=== PATIENT | female | born 1995 | race African-American/Black ===

== ENCOUNTER 2019-05-01 15:31 | Emergency (ER) | payer OTHER ==
[~2019-05-01] VITALS: Ht 165.1 cm; Wt 86.2 kg
[~2019-05-01 15:31] MED LIST: PRETAB PO
--- NOTE | 2019-05-01 15:31 | NUR ---
PATIENT BIBA TO BED 1 AT THIS TIME
[2019-05-01 15:39] VITALS: BP 133/87
--- NOTE | 2019-05-01 15:39 | NUR ---
PER EMS PT STARTED HAVING TREMORS, SNAPPING FINGERS UNCRONTROLABLY X30 MIN, PT FROM HOME, ALONG W/ T[place] FROM 35-45, CURRENT RESP RATE 21. PT AAOX3, COOPERATIVE, CONSTANT TREMORS, DOES NOT REMEMBER COMING TO HOSPITAL OR WHAT WAS HAPPENING BEFORE COMING TO HOSPITAL. PT DENIES ANY MEDICATIONS OR DRUG USE. PT REPORTS RECENT LOSS OF DAUGHTER 2 MONTHS AGO, DENIES STRESS AT HOME. MEDHX:DENIES RX:DENIES Addendum: 05/01/19 at 1547 by LILIAM PT C/O CP AT 02/25, PER THOMAS TODD NO EKG AT THIS TIME.
[2019-05-01] MEDS ORDERED: NACL 0.9% 1,000 ML IV ONE (16:25)
--- NOTE | 2019-05-01 17:07 | NUR ---
PT AMBULATED TO BATHROOM TO PROVIDE URINE SAMPLE.
--- NOTE | 2019-05-01 17:48 | NUR ---
PT AMB TO RESTROOM FOR URINE SAMPLE. NO URINE SAMPLE FIRST ATTEMPT.
--- NOTE | 2019-05-01 17:59 | NUR ---
URINE COLLECTED AND WALKED DIRECTLY TO LAB
[2019-05-01 18:08] LABS: APPEARANCE,URINE CLEAR (CLEAR); BLOOD, URINE NEGATIVE (NEGATIVE); COLOR,URINE STRAW (YELLOW); UGLUCOSE NEGATIVE (NEGATIVE)
[2019-05-01 18:09] LABS: BILIRUBIN,URINE NEGATIVE (NEGATIVE); LEUKOCYTE ESTERASE ,URINE NEGATIVE (NEGATIVE); NITRITE, URINE NEGATIVE (NEGATIVE)
[2019-05-01 18:10] LABS: BARBITURATE, URINE NEG. ng/ml (NEG <=200); BENZODIAZEPINE, URINE NEG. ng/mL (NEG <=200); CANNABINOID, URINE NEG. ng/mL (NEG <=50); COCAINE, URINE NEG. ng/mL (NEG <=300); OPIATE, URINE NEG. ng/mL (NEG <=2000); PHENCYCLIDINE SCREEN,URINE NEG. ng/mL (NEG <=25)
[2019-05-01 19:10] VITALS: BP 124/74
== END 2019-05-01 19:10 | disposition home or self-care (01) ==
LOC: MED 15:31
DX: F41.9 Anxiety disorder, unspecified (principal); E86.0 Dehydration; Z79.899 Other long term (current) drug therapy; Z98.890 Other specified postprocedural states
CPT/HCPCS: 80305; 81003; 82948; 96360; 99283; J7030

== ENCOUNTER 2020-07-02 20:08 | Emergency (ER) | payer OTHER ==
[2020-07-02] MEDS ORDERED: LORazepam 1 MG TAB ONE (21:11)
== END 2020-07-02 22:40 | disposition home or self-care (01) ==
LOC: MED 20:08
DX: F41.0 Panic disorder [episodic paroxysmal anxiety] (principal); F10.129 Alcohol abuse with intoxication, unspecified
CPT/HCPCS: 71045; 99283; Q0092

== ENCOUNTER 2020-08-01 12:58 | Emergency (ER) | payer OTHER ==
[~2020-08-01] VITALS: Ht 160 cm; Wt 89.8 kg
[2020-08-01 13:04] VITALS: BP 144/91
[2020-08-01] MEDS: LORazepam 1 MG TAB PO ONE (13:40)
[2020-08-01 13:51] LABS: BASOPHILS # (AUTO) 0.1 K/uL (0.00-0.22); BASOPHILS % (AUTO) 0.9 % (0.0-2.0); EOSINOPHILS # (AUTO) 0.2 K/uL (0-0.4); EOSINOPHILS % (AUTO) 3.3 % (0.0-4.0); HEMATOCRIT 36.6 % (36-48); HEMOGLOBIN 11.9 g/dL (12.0-16.0); LYMPHOCYTES # (AUTO) 1.6 K/uL (2.5-16.5); LYMPHOCYTES % (AUTO) 25.2 % (20.5-51.1); MEAN CORPUSCULAR HEMOGLOBIN 28 pg (27-31); MEAN CORPUSCULAR HGB CONC 33 g/dL (33-37); MEAN CORPUSCULAR VOLUME 87.2 fL (80-94); MONOCYTES # (AUTO) 0.9 K/uL (0.8-1.0); MONOCYTES % (AUTO) 13.6 % (1.7-9.3); NEUTROPHILS # (AUTO) 3.7 K/uL (1.8-7.7); PLATELET COUNT (AUTO) 213 K/uL (140-450); RED BLOOD CELL COUNT(AUTO) 4.19 MIL/uL (4.20-5.40); RED CELL DISTRIBUTION WIDTH 19.2 % (11.6-13.7); WHITE BLOOD COUNT (AUTO) 6.5 K/uL (4.8-10.8)
[2020-08-01 14:15] LABS: ALBUMIN 3.8 g/dL (3.4-5.0); ANION GAP 15.5 (8-16); CARBON DIOXIDE 23.5 mmol/L (21-32); CREATININE 0.8 mg/dL (0.6-1.3); THYROID STIMULATING HORMONE 0.92 uIU/mL (0.34-3.74); TOTAL BILIRUBIN 0.4 mg/dL (0.0-1.0)
[2020-08-01 14:25] VITALS: BP 123/77
== END 2020-08-01 14:39 | disposition home or self-care (01) ==
LOC: MED 12:58
DX: R07.9 Chest pain, unspecified (principal); F10.239 Alcohol dependence with withdrawal, unspecified; R03.0 Elevated blood-pressure reading, without diagnosis of hypertension; F17.210 Nicotine dependence, cigarettes, uncomplicated; Z79.899 Other long term (current) drug therapy; Z98.890 Other specified postprocedural states
CPT/HCPCS: 36415; 80053; 81025; 84443; 84484; 85025; 93005; 99284

== ENCOUNTER 2020-08-19 13:08 | Emergency (ER) | payer OTHER ==
[~2020-08-19] VITALS: Ht 160 cm; Wt 89.4 kg
[2020-08-19 13:17] VITALS: BP 146/98
--- NOTE | 2020-08-19 13:19 | NUR ---
24 YEAR OLD FEMALE BIBA FROM [facility] [facility] AFTER HAVING ANXIETY THAT HAS BEEN GRADUALLY GETTING WORSE SINCE 9AM. PT STATES THAT SYMPTOMS SAME FROM PREVIOUS PANIC ATTACK. PT SHAKING, HEADACHE, AND WITH DIZZINESS. PT AOX4, BREATHING EVEN AND UNLABORED, SKIN WARM AND DRY. BED IN LOWEST POSITION, LOCKED, BED RAIL UPX1. PMH - PANIC ATTACKS ALLERGIES - NKA
[2020-08-19] MEDS ORDERED: diazePAM 5 MG TAB PO ONE (13:40)
[2020-08-19 15:41] VITALS: BP 135/89
--- NOTE | 2020-08-19 15:41 | NUR ---
Patient discharged with v/s stable. Written and verbal after care instructions given and explained. Patient verbalized understanding. Ambulatory with steady gait. All questions addressed prior to discharge. Advised to follow up with PMD.
== END 2020-08-19 15:41 | disposition home or self-care (01) ==
LOC: MED 13:08
DX: F41.9 Anxiety disorder, unspecified (principal); Z88.8 Allergy status to other drugs, medicaments and biological substances; Z79.899 Other long term (current) drug therapy
CPT/HCPCS: 70450; 81025; 99284

== ENCOUNTER 2021-05-24 06:50 | Emergency (ER) | payer OTHER ==
[~2021-05-24] VITALS: Ht 167.6 cm; Wt 111.1 kg
[2021-05-24 07:00] VITALS: BP 88/64
--- NOTE | 2021-05-24 07:00 | NUR ---
PT BIBA FROM HOME AND PLACE OUTSIDE IN COVID TENT FOR ISOLATION.
--- NOTE | 2021-05-24 07:05 | NUR ---
KATIANA OF [facility] COLLECTED AND TAKEN TO LAB.
--- NOTE | 2021-05-24 07:16 | NUR ---
DAY SULLIVAN OUTSIDE EVALUATING PATIENT.
[2021-05-24] MEDS ORDERED: HYDR25CA1 PO (08:04)
[2021-05-24 08:10] VITALS: BP 102/70
--- NOTE | 2021-05-24 08:10 | NUR ---
Patient discharged with v/s stable. Written and verbal after care instructions given and explained. Patient alert, oriented and verbalized understanding of instructions. Ambulatory with steady gait. All questions addressed prior to discharge. ID band removed. Patient advised to follow up with PMD. Rx of Vistaril given. Patient educated on indication of medication including possible reaction and side effects. Opportunity to ask questions provided and answered.
== END 2021-05-24 08:10 | disposition home or self-care (01) ==
LOC: MED 06:50
DX: F41.9 Anxiety disorder, unspecified (principal); Z20.822 Contact with and (suspected) exposure to COVID-19; R50.9 Fever, unspecified; R10.9 Unspecified abdominal pain; Z98.890 Other specified postprocedural states; Z79.899 Other long term (current) drug therapy; Z88.6 Allergy status to analgesic agent
CPT/HCPCS: 99283

== ENCOUNTER 2021-05-30 14:58 | Emergency (ER) | payer OTHER ==
[~2021-05-30] VITALS: Ht 160 cm; Wt 77.1 kg
[~2021-05-30 14:58] MED LIST changes: +HYDR25CA1 PO
[2021-05-30 15:13] VITALS: BP 160/107
--- NOTE | 2021-05-30 15:33 | NUR ---
PT TO ER BED 11.
--- NOTE | 2021-05-30 15:48 | NUR ---
25 Y/O FEMALE C/O LLQ ABD PAIN 06/28 DESCRIBES SHARP RADIATING TO LEFT FLANK X 6 DAYS. PT STATES SHE IS HAVING HESITANCY. DENIES SOB, DENIES FEVER/CHILLS. PMH: ANXIETY, HTN ALLERGIES: IBUPROFEN
[2021-05-30] MEDS ORDERED: ONDANSETRON 4 MG/2 ML VIAL IVP ONE (16:00)
[2021-05-30] MEDS ORDERED: MORPHINE SULFATE 4 MG/ML SYR IVP ONE (16:00)
--- NOTE | 2021-05-30 16:12 | NUR ---
OUTSEWER AT PT BEDSIDE.
--- NOTE | 2021-05-30 16:14 | NUR ---
PT AMBULATED TO RESTROOM FOR UA COLLECTION.
[2021-05-30 16:21] LABS: APPEARANCE,URINE CLEAR (CLEAR); BILIRUBIN,URINE NEGATIVE (NEGATIVE); BLOOD, URINE NEGATIVE (NEGATIVE); COLOR,URINE YELLOW (YELLOW); LEUKOCYTE ESTERASE ,URINE NEGATIVE (NEGATIVE); NITRITE, URINE NEGATIVE (NEGATIVE); UGLUCOSE NEGATIVE (NEGATIVE)
[2021-05-30 16:22] LABS: BASOPHILS # (AUTO) 0.1 K/uL (0.00-0.22); BASOPHILS % (AUTO) 0.9 % (0.0-2.0); EOSINOPHILS # (AUTO) 0.1 K/uL (0-0.4); EOSINOPHILS % (AUTO) 1.3 % (0.0-4.0); HEMATOCRIT 37.2 % (36-48); LYMPHOCYTES # (AUTO) 1.5 K/uL (2.5-16.5); LYMPHOCYTES % (AUTO) 20.5 % (20.5-51.1); MEAN CORPUSCULAR HEMOGLOBIN 29 pg (27-31); MEAN CORPUSCULAR HGB CONC 32 g/dL (33-37); MEAN CORPUSCULAR VOLUME 88.6 fL (80-94); MONOCYTES # (AUTO) 0.5 K/uL (0.8-1.0); MONOCYTES % (AUTO) 7.7 % (1.7-9.3); NEUTROPHILS # (AUTO) 4.9 K/uL (1.8-7.7); NEUTROPHILS % (AUTO) 69.6 % (42.2-75.2); PLATELET COUNT (AUTO) 224 K/uL (140-450); RED CELL DISTRIBUTION WIDTH 18.4 % (11.6-13.7); WHITE BLOOD COUNT (AUTO) 7.1 K/uL (4.8-10.8)
[2021-05-30 16:52] LABS: ANION GAP 12.6 (8-16); CARBON DIOXIDE 26.6 mmol/L (21-32); CREATININE 0.7 mg/dL (0.6-1.3); POTASSIUM 4.2 mmol/L (3.5-5.1); TOTAL BILIRUBIN 0.5 mg/dL (0.0-1.0)
--- NOTE | 2021-05-30 16:56 | NUR ---
PT RESTING, VISIBLE EQUAL RISE AND FALL OF CHEST, VSS, WILL CONTINUE TO MONITOR.
--- NOTE | 2021-05-30 16:57 | NUR ---
PT TAKEN TO CT VIA W/C.
--- NOTE | 2021-05-30 17:14 | NUR ---
PT TAKEN TO ER BED 11 VIA W/C.
[2021-05-30] MEDS ORDERED: BEN10 PO (17:35)
--- NOTE | 2021-05-30 17:44 | NUR ---
DR. SULLIVAN AT PT BEDSIDE FOR FURTHER EVALUATION.
[2021-05-30 17:53] VITALS: BP 144/87
--- NOTE | 2021-05-30 17:53 | NUR ---
Patient discharged with v/s stable. Written and verbal after care instructions given ABD PAIN and explained. Patient alert, oriented and verbalized understanding of instructions. Ambulatory with steady gait. All questions addressed prior to discharge. ID band removed. Patient advised to follow up with PMD. Rx of BENTYL 10MG PO Q6H PRN PAIN given. Patient educated on indication of medication including possible reaction and side effects. Opportunity to ask questions provided and answered.
== END 2021-05-30 17:53 | disposition home or self-care (01) ==
LOC: MED 14:58
DX: R10.32 Left lower quadrant pain (principal); M54.9 Dorsalgia, unspecified; F41.9 Anxiety disorder, unspecified; F17.210 Nicotine dependence, cigarettes, uncomplicated; Z88.6 Allergy status to analgesic agent; Z79.899 Other long term (current) drug therapy; Z98.890 Other specified postprocedural states
CPT/HCPCS: 36415; 74176; 80053; 81003; 81025; 83690; 85025; 96374; 96375; 99284; J2270; J2405

== ENCOUNTER 2021-09-23 11:58 | Emergency (ER) | payer OTHER ==
[~2021-09-23] VITALS: Ht 160 cm; Wt 90.7 kg
[~2021-09-23 11:58] MED LIST changes: +BEN10 PO
[2021-09-23 12:24] VITALS: BP 159/83
[2021-09-23] MEDS ORDERED: HYDROcodone/APAP 5/325 MG 1 TAB TAB PO ONE (13:20)
--- NOTE | 2021-09-23 14:07 | NUR ---
26 y/o female bib sister from home, patient states she has been having right sided rib pain and left leg pain since 09/17/21. denies injury, exertion or fall. Denies nausea, vomiting, diarrhea. Skin is pink/warm/dry. a&o x4 ambulates with assist. Lungs clear bl, heart rate even and regular. Pt denies any fever, cp, sob, or cough at this time. Patient states pain is 10/10 at this time. Vss. patient positioned for comfort. Hob elevated. Bed down. Ermd made aware of pt. pmh: htn allergy: ibuprofen med: denies
[2021-09-23] MEDS ORDERED: NAPR-54 PO (14:48)
[2021-09-23] MEDS ORDERED: ACET-10509 PO (14:49)
[2021-09-23 14:58] VITALS: BP 159/83
--- NOTE | 2021-09-23 14:59 | NUR ---
Note undone in EDM - 09/23/21 at 1500 by MEDPMR Patient discharged with v/s stable. Written and verbal after care instructions given and explained. Patient alert, oriented and verbalized understanding of instructions. Ambulatory with sister to car. All questions addressed prior to discharge. ID band removed. Patient advised to follow up with PMD. Rx of naproxen given. Patient educated on indication of medication including possible reaction and side effects. Opportunity to ask questions provided and answered.
--- NOTE | 2021-09-23 15:00 | NUR ---
Patient discharged with v/s stable. Written and verbal after care instructions given and explained. Patient alert, oriented and verbalized understanding of instructions. Ambulatory with sister to car. All questions addressed prior to discharge. ID band removed. Patient advised to follow up with PMD. Rx of tylenol given. Patient educated on indication of medication including possible reaction and side effects. Opportunity to ask questions provided and answered.
== END 2021-09-23 14:58 | disposition home or self-care (01) ==
LOC: MED 11:58
DX: R07.81 Pleurodynia (principal); M79.604 Pain in right leg; M79.605 Pain in left leg; I10 Essential (primary) hypertension; Z79.899 Other long term (current) drug therapy; Z88.6 Allergy status to analgesic agent
CPT/HCPCS: 71111; 81002; 81025; 99283

== ENCOUNTER 2022-03-20 14:03 | Emergency (ER) | payer OTHER ==
[~2022-03-20] VITALS: Ht 160 cm; Wt 90.7 kg
[~2022-03-20 14:03] MED LIST changes: +ACET-10509 PO
[2022-03-20 14:21] VITALS: BP 134/66
[2022-03-20] MEDS ORDERED: ACETAMINOPHEN 325 MG TAB PO ONE (15:30)
[2022-03-20] MEDS ORDERED: ACET500P13 PO (15:57)
[2022-03-20 17:06] VITALS: BP 152/67
--- NOTE | 2022-03-20 17:06 | NUR ---
Patient discharged with v/s stable. Written and verbal after care instructions ABOUT WRIST PAIN given and explained. Patient alert, oriented and verbalized understanding of instructions. Ambulatory with steady gait. All questions addressed prior to discharge. ID band removed. Patient advised to follow up with PMD. Rx of TYLENOL EXTRA STRENGTH given. Patient educated on indication of medication including possible reaction and side effects. Opportunity to ask questions provided and answered.
== END 2022-03-20 17:06 | disposition home or self-care (01) ==
LOC: MED 14:03
DX: S63.501A Unspecified sprain of right wrist, initial encounter (principal); S63.91XA Sprain of unspecified part of right wrist and hand, initial encounter; I10 Essential (primary) hypertension; Z79.899 Other long term (current) drug therapy; Z88.6 Allergy status to analgesic agent; W22.01XA Walked into wall, initial encounter; Y93.89 Activity, other specified; Y92.89 Other specified places as the place of occurrence of the external cause; Y99.8 Other external cause status
CPT/HCPCS: 73110; 73130; 99284

== ENCOUNTER 2023-01-02 15:52 | Emergency (ER) | payer OTHER ==
[~2023-01-02] VITALS: Ht 160 cm; Wt 83.9 kg
[~2023-01-02 15:52] MED LIST changes: +ACET500P13 PO
[2023-01-02 16:00] VITALS: BP 142/93
--- NOTE | 2023-01-02 16:46 | NUR ---
27 Y/O FEMALE C/O PANIC ATTACKS, ANXIETY AND CHEST PAIN WHEN PANIC ATTACK IS ON [id number]. PT STATES THAT SHE FEELS THOUGH "HER LEFT HAND IS GOING NUMB". DENIES ANY SOB, ABD PAIN. PER PT LAST PANIC ATTACK WAS TODAY AT 1500. DENIES CHEST PAIN AT THIS TIME ALLERGY: IBUPROFEN PMH: ANXIETY, HTN
--- NOTE | 2023-01-02 17:12 | NUR ---
PT RETURN FROM XRAY
[2023-01-02 17:27] LABS: BASOPHILS # (AUTO) 0.1 K/uL (0.00-0.22); BASOPHILS % (AUTO) 2.8 % (0.0-2.0); EOSINOPHILS # (AUTO) 0.1 K/uL (0-0.4); HEMATOCRIT 39.4 % (36-48); HEMOGLOBIN 12.8 g/dL (12.0-16.0); LYMPHOCYTES # (AUTO) 1.9 K/uL (2.5-16.5); LYMPHOCYTES % (AUTO) 38.6 % (20.5-51.1); MEAN CORPUSCULAR HEMOGLOBIN 30 pg (27-31); MEAN CORPUSCULAR HGB CONC 32 g/dL (33-37); MEAN CORPUSCULAR VOLUME 93.2 fL (80-94); MONOCYTES # (AUTO) 0.5 K/uL (0.8-1.0); MONOCYTES % (AUTO) 10.6 % (1.7-9.3); NEUTROPHILS # (AUTO) 2.3 K/uL (1.8-7.7); PLATELET COUNT (AUTO) 271 K/uL (140-450); RED BLOOD CELL COUNT(AUTO) 4.23 MIL/uL (4.20-5.40)
[2023-01-02 17:39] VITALS: BP 152/77
[2023-01-02 17:46] LABS: ANION GAP 13.2 (8-16); CARBON DIOXIDE 29.6 mmol/L (21-32); CREATININE 0.8 mg/dL (0.6-1.3); POTASSIUM 3.8 mmol/L (3.5-5.1)
[2023-01-02] MEDS ORDERED: HYDR25CA1 PO (18:04)
== END 2023-01-02 18:34 | disposition home or self-care (01) ==
LOC: MED 15:52
DX: R07.9 Chest pain, unspecified (principal); F41.9 Anxiety disorder, unspecified; I10 Essential (primary) hypertension; F17.200 Nicotine dependence, unspecified, uncomplicated; Z88.5 Allergy status to narcotic agent; Z72.89 Other problems related to lifestyle; Z79.899 Other long term (current) drug therapy
CPT/HCPCS: 36415; 71045; 80048; 81025; 84484; 85025; 85379; 93005; 99285

== ENCOUNTER 2023-01-24 17:32 | Emergency (ER) | payer OTHER ==
[~2023-01-24] VITALS: Ht 160 cm; Wt 83.5 kg
[2023-01-24 17:39] VITALS: BP 133/70
--- NOTE | 2023-01-24 17:42 | NUR ---
PT AMBULATED TO ER BED 4
--- NOTE | 2023-01-24 18:17 | NUR ---
here for left breast swelling and pain, no nipple discharge, no fever or chills
--- NOTE | 2023-01-24 18:46 | NUR ---
Female Billet Cutter accompanied female patient for BREAST Exam.
[2023-01-24] MEDS ORDERED: LIDOCAINE MPF 1% 10 MG/ML VIAL INJ ONE (19:00)
[2023-01-24] MEDS ORDERED: ACETAMINOPHEN 325 MG TAB PO ONE (19:00)
[2023-01-24] MEDS ORDERED: CEPH-588 PO (20:03)
[2023-01-24] MEDS ORDERED: SULF-59 PO (20:03)
[2023-01-24] MEDS ORDERED: ACET-8905 PO (20:03)
[2023-01-24 20:12] VITALS: BP 133/70
--- NOTE | 2023-01-24 20:12 | NUR ---
Patient discharged with v/s stable. Written and verbal after care instructions given and explained. Patient alert, oriented and verbalized understanding of instructions. Ambulatory with steady gait. All questions addressed prior to discharge. ID band removed. Patient advised to follow up with PMD. Rx of KEFLEX BACTRIM HYDROCODON-ACETAMINOPHEN given. Patient educated on indication of medication including possible reaction and side effects. Opportunity to ask questions provided and answered.
== END 2023-01-24 20:12 | disposition home or self-care (01) ==
LOC: MED 17:32
DX: N63.20 Unspecified lump in the left breast, unspecified quadrant (principal); I10 Essential (primary) hypertension; F17.210 Nicotine dependence, cigarettes, uncomplicated; Z72.89 Other problems related to lifestyle; Z88.5 Allergy status to narcotic agent; Z79.899 Other long term (current) drug therapy
CPT/HCPCS: 10060; 99284; J2001

== ENCOUNTER 2023-01-28 11:19 | Emergency (ER) | payer OTHER ==
[~2023-01-28] VITALS: Ht 160 cm; Wt 84.8 kg
[~2023-01-28 11:19] MED LIST changes: +ACET-8905 PO; +CEPH-588 PO; +SULF-59 PO
[2023-01-28 11:25] VITALS: BP 144/95
--- NOTE | 2023-01-28 12:00 | NUR ---
27/F WALKED IN C/O LEFT SIDED BREAST PAIN WORSE IN AM. PT STATES NOTICING LUMP ON BREAST X 1 WK. PMH- Denies NKA
[2023-01-28 13:55] VITALS: BP 133/85
== END 2023-01-28 13:55 | disposition home or self-care (01) ==
LOC: MED 11:19
DX: N64.4 Mastodynia (principal); I10 Essential (primary) hypertension; F31.9 Bipolar disorder, unspecified; Z79.899 Other long term (current) drug therapy; Z79.2 Long term (current) use of antibiotics; Z79.891 Long term (current) use of opiate analgesic; Z88.6 Allergy status to analgesic agent
CPT/HCPCS: 76641; 99284

== ENCOUNTER 2023-05-04 11:38 | Emergency (ER) | payer OTHER ==
[~2023-05-04] VITALS: Ht 162.6 cm; Wt 81.6 kg
--- NOTE | 2023-05-04 11:42 | NUR ---
[facility] TO ER BED 07
[2023-05-04 11:54] VITALS: BP 132/76; PULSE 92; RESP 18; TEMP 97; O2SAT 98
--- NOTE | 2023-05-04 11:58 | NUR ---
27yo F SHAHRZAD ON 5150 HOLD FOR DTS. PT STATES SHE TOOK 7 PILLS OF TRAZODONE 50MG AT 0800AM. PT STATES "I JUST WANT TO FALL ASLEEP AND NEVER WAKE UP. I FEEL SO DEPRESSED." SISTER CALLED MEDICS TO BE TREATED IN ED. PT C/O ABD PAIN AND NAUSEA X 2HRS. PT STATES SHE HAS PREVIOUSLY ATTEMP TO KILL HERSELF, UNSUCCESSFUL. CURRENTLY IS STRESSED BECAUSE SHE HAS TO MOVE OUT OF HER APARTMENT SOON AND HAS NO PLACE TO GO. SHE IS IN THE PROCESS OF SSI, HER FAMILY WILL ALLOW HER TO STAY WITH THEM IF NEEDED BUT SHE RATHER LIVE ON HER OWN. PT DENIES VOMITING, MEJIA, FEVER, CHILLS, URINARY SYMPTOMS. DENIES VISUAL AND AUDIABLE HALLUCINATIONS. PT SKIN INTACT/DRY. NAD NOTED, SAFETY MAINTAINED. HOLD PLACED BY LALO NAGEL ON 05/04/23 AT 1120 OFFICER John PAGE BAD NUMBER [id number] ON 05/04/23 AT 1120 BY OFFICER John PAGE
--- NOTE | 2023-05-04 12:09 | NUR ---
PT PLACED ON SUICIDE PRECAUTIONS. CURRENTLY ON LUMBER STACKER. PER POISON CONTROL PT SHOULD BE MONITORED FOR 6 HOURS BEFORE PT CAN BE MEDICALLY CLEARED TO BE PLACED IN A PSYCH FACILITY.
[2023-05-04 12:23] LABS: BASOPHILS # (AUTO) 0.1 K/uL (0.00-0.22); EOSINOPHILS # (AUTO) 0.2 K/uL (0-0.4); HEMATOCRIT 37.6 % (36-48); HEMOGLOBIN 12.1 g/dL (12.0-16.0); LYMPHOCYTES # (AUTO) 1.8 K/uL (2.5-16.5); LYMPHOCYTES % (AUTO) 23.4 % (20.5-51.1); MEAN CORPUSCULAR HEMOGLOBIN 31 pg (27-31); MEAN CORPUSCULAR HGB CONC 32 g/dL (33-37); MEAN CORPUSCULAR VOLUME 96.2 fL (80-94); MONOCYTES # (AUTO) 1.2 K/uL (0.8-1.0); MONOCYTES % (AUTO) 14.9 % (1.7-9.3); NEUTROPHILS # (AUTO) 4.6 K/uL (1.8-7.7); NEUTROPHILS % (AUTO) 58.7 % (42.2-75.2); PLATELET COUNT (AUTO) 253 K/uL (140-450); RED CELL DISTRIBUTION WIDTH 17.1 % (11.6-13.7); WHITE BLOOD COUNT (AUTO) 7.9 K/uL (4.8-10.8)
[2023-05-04 12:27] LABS: APPEARANCE,URINE CLEAR (CLEAR); BILIRUBIN,URINE NEGATIVE (NEGATIVE); BLOOD, URINE NEGATIVE (NEGATIVE); COLOR,URINE YELLOW (YELLOW); LEUKOCYTE ESTERASE ,URINE NEGATIVE (NEGATIVE); NITRITE, URINE NEGATIVE (NEGATIVE); UGLUCOSE NEGATIVE (NEGATIVE)
[2023-05-04 12:45] LABS: BARBITURATE, URINE NEG ng/ml (NEG <=200); BENZODIAZEPINE, URINE NEG ng/mL (NEG <=200); CANNABINOID, URINE NEG ng/mL (NEG <=50); COCAINE, URINE NEG ng/mL (NEG <=300); OPIATE, URINE NEG ng/mL (NEG <=2000); PHENCYCLIDINE SCREEN,URINE NEG ng/mL (NEG <=25)
[2023-05-04 12:49] LABS: ALBUMIN 3.2 g/dL (3.4-5.0); ANION GAP 12.9 (8-16); ASPARTATE AMINOTRANSFERASE 46 U/L (15-37); CARBON DIOXIDE 26.9 mmol/L (21-32); CHLORIDE 107 mmol/L (98-107); CREATININE 0.6 mg/dL (0.6-1.3); GFR ARICAN-AMERICAN 152 mL/min (>90); GLUCOSE 93 mg/dL (74-106); POTASSIUM 3.8 mmol/L (3.5-5.1); SODIUM SERUM 143 mmol/L (136-145); TOTAL BILIRUBIN 0.3 mg/dL (0.0-1.0); UREA NITROGEN, BLOOD 8 mg/dL (7-18)
[2023-05-04 12:50] LABS: ACETAMINOPHEN < 0.5 ug/ml (10-30); SALICYLATE < 2.8 mg/dL (2.8-20.0)
[2023-05-04 14:10] VITALS: O2SAT 99
[2023-05-04] MEDS ORDERED: ALUMINUM HYD/MAG/SIMETHICONE 30 ML UDC PO ONE (14:55)
--- NOTE | 2023-05-04 15:47 | NUR ---
CALLED POISON CONTROL TO REPORT EKG, CHEM, TOX, UA, AND CURRENT VS. PER MIRAJ FOR POISON CONTROL EKG TO BE REPEATED AFTER 4HRS OF FIRST ONE. IF QTC LOWER THAN [address] PSYCH FACILITY/MEDICALLY CLEARED TO PLACE. AWARE.
[2023-05-04 16:14] VITALS: O2SAT 99
[2023-05-04 18:45] VITALS: O2SAT 99
--- NOTE | 2023-05-04 18:45 | NUR ---
PT EATING DINNER, SITTING UPRIGHT.
--- NOTE | 2023-05-04 19:38 | NUR ---
Pt report given to SHELLY RANDALL. ALL QUESTIONS ANSWERED Transfer of care at this time.
[2023-05-04 21:30] VITALS: O2SAT 99
--- NOTE | 2023-05-04 21:42 | NUR ---
SPOKE WITH YOLY FROM [facility] AND GAVE REPORT. AWAITING POSSIBLE ACCEPTANCE
--- NOTE | 2023-05-04 23:00 | NUR ---
REPORT GIVEN TO FLO FROM [facility].
[2023-05-05 00:14] VITALS: BP 142/85; PULSE 75; RESP 15; TEMP 98.5
[2023-05-05 00:20] VITALS: O2SAT 97
--- NOTE | 2023-05-05 00:26 | NUR ---
[facility] TRANSPORT AT BEDSIDE
--- NOTE | 2023-05-05 01:07 | NUR ---
Patient to be transferred to [facility]. Is being transferred due to HIGHER LEVEL OF CARE. Receiving facility has accepting physician and available space. ER physician has signed transfer form. Patient or responsible constitution party has agreed to transfer and signed form. Patient belongings inventoried and will be sent with patient. Copy of nursing notes, lab reports, EKG, Physicians Orders and X-rays to be sent with patient. Report called to FLO ANDUJAR at receiving facility. [facility] ambulance service has been called for transfer. ETA is 60 MIN.
--- NOTE | 2023-05-05 01:09 | NUR ---
PT TAKEN BY [facility] TRAN[facility] TO [facility]
== END 2023-05-05 01:09 ==
LOC: MED 11:38
DX: R45.851 Suicidal ideations (principal); Z20.822 Contact with and (suspected) exposure to COVID-19; T43.212A Poisoning by selective serotonin and norepinephrine reuptake inhibitors, intentional self-harm, initial encounter; I10 Essential (primary) hypertension; Z79.899 Other long term (current) drug therapy; Y92.89 Other specified places as the place of occurrence of the external cause
CPT/HCPCS: 36415; 80053; 80305; 81003; 81025; 85025; 87426; 87635; 93005; 99291; C9803; G0480; G0482

== ENCOUNTER 2024-03-24 11:26 | Emergency (ER) | payer OTHER ==
[~2024-03-24] VITALS: Ht 160 cm; Wt 101.6 kg
[2024-03-24 11:40] VITALS: BP 129/78; PULSE 95; RESP 18; TEMP 97.5; O2SAT 99
[2024-03-24] MEDS: ACETAMINOPHEN EXTRA STRENGTH 500 MG TAB PO ONE (12:31)
[2024-03-24 14:23] VITALS: BP 122/72; PULSE 78; RESP 16; TEMP 98; O2SAT 99
== END 2024-03-24 14:23 | disposition home or self-care (01) ==
LOC: MED 11:26
DX: S83.8X2A Sprain of other specified parts of left knee, initial encounter (principal); R22.42 Localized swelling, mass and lump, left lower limb; I10 Essential (primary) hypertension; Z79.1 Long term (current) use of non-steroidal anti-inflammatories (NSAID); W18.30XA Fall on same level, unspecified, initial encounter; Y93.89 Activity, other specified; Y92.89 Other specified places as the place of occurrence of the external cause; Y99.8 Other external cause status
CPT/HCPCS: 73562; 81025; 93971; 99284

== ENCOUNTER 2024-05-26 16:30 | Emergency (ER) | payer OTHER ==
[~2024-05-26] VITALS: Ht 160 cm; Wt 95.7 kg
[2024-05-26 16:39] VITALS: BP 138/81; PULSE 92; RESP 16; TEMP 98.6; O2SAT 99
[2024-05-26 17:44] LABS: BASOPHILS # (AUTO) 0.1 K/uL (0.00-0.22); BASOPHILS % (AUTO) 0.7 % (0.0-2.0); EOSINOPHILS # (AUTO) 0.1 K/uL (0-0.4); EOSINOPHILS % (AUTO) 1.1 % (0.0-4.0); HEMATOCRIT 34.2 % (36-48); HEMOGLOBIN 10.6 g/dL (12.0-16.0); LYMPHOCYTES % (AUTO) 25.9 % (20.5-51.1); MEAN CORPUSCULAR HEMOGLOBIN 25 pg (27-31); MEAN CORPUSCULAR HGB CONC 31 g/dL (33-37); MEAN CORPUSCULAR VOLUME 79.4 fL (80-94); MONOCYTES % (AUTO) 12.4 % (1.7-9.3); NEUTROPHILS # (AUTO) 4.7 K/uL (1.8-7.7); NEUTROPHILS % (AUTO) 59.9 % (42.2-75.2); PLATELET COUNT (AUTO) 245 K/uL (140-450); RED BLOOD CELL COUNT(AUTO) 4.31 MIL/uL (4.20-5.40); RED CELL DISTRIBUTION WIDTH 22.7 % (11.6-13.7); WHITE BLOOD COUNT (AUTO) 7.9 K/uL (4.8-10.8)
[2024-05-26] MEDS: ALUMINUM HYD/MAG/SIMETHICONE 30 ML UDC PO ONE (17:46)
[2024-05-26] MEDS: ACETAMINOPHEN 325 MG TAB PO ONE (17:48)
[2024-05-26] MEDS: FAMOTIDINE 20 MG TAB PO ONE (17:48)
[2024-05-26 17:51] LABS: BILIRUBIN,URINE NEGATIVE (NEGATIVE); BLOOD, URINE NEGATIVE (NEGATIVE); COLOR,URINE YELLOW (YELLOW); LEUKOCYTE ESTERASE ,URINE NEGATIVE (NEGATIVE); NITRITE, URINE NEGATIVE (NEGATIVE); PH,URINE 7.5 (5.0-9.0); PROTEIN,URINE 1+ (NEGATIVE); UGLUCOSE NEGATIVE (NEGATIVE)
[2024-05-26 17:56] LABS: APPEARANCE,URINE HAZY (CLEAR)
[2024-05-26 18:04] LABS: ANION GAP 15.7 (8-16); CARBON DIOXIDE 23.8 mmol/L (21-32); CREATININE 0.8 mg/dL (0.6-1.3); POTASSIUM 3.5 mmol/L (3.5-5.1)
[2024-05-26 18:07] LABS: RBC,URINE 0 /HPF (0-5); WBC,URINE 0-5 /HPF (0-5)
[2024-05-26 18:08] LABS: BACTERIA,URINE 2+ /HPF (None Seen); MUCUS,URINE None Seen /LPF (None Seen); SQUAMOUS EPITHELIAL CELL,UR 4-10 (MOD) /LPF (0-3 (FEW))
[2024-05-26 18:08] LABS: ALANINE AMINOTRANSFERASE 23 U/L (12-78); ALBUMIN 3.4 g/dL (3.4-5.0); ALKALINE PHOSPHATASE 88 U/L (50-136); ASPARTATE AMINOTRANSFERASE 15 U/L (15-37); BILIRUBIN,DIRECT 0.2 mg/dL (0.0-0.3); LIPASE 22 U/L (16-77); TOTAL BILIRUBIN 0.8 mg/dL (0.0-1.0); TOTAL PROTEIN, SERUM 7.4 g/dL (6.4-8.2)
[2024-05-26] MEDS ORDERED: CEPH-588 PO (20:26)
[2024-05-26] MEDS ORDERED: ACET-10509 PO (20:26)
[2024-05-26 20:52] VITALS: BP 130/81; PULSE 90; RESP 17; TEMP 98.6; O2SAT 99
== END 2024-05-26 20:52 | disposition home or self-care (01) ==
LOC: MED 16:30
DX: N39.0 Urinary tract infection, site not specified (principal); D64.9 Anemia, unspecified; R11.2 Nausea with vomiting, unspecified; I10 Essential (primary) hypertension; F32.9 Major depressive disorder, single episode, unspecified; G47.00 Insomnia, unspecified; Z98.890 Other specified postprocedural states; Z79.899 Other long term (current) drug therapy; Z88.6 Allergy status to analgesic agent
CPT/HCPCS: 36415; 71045; 74176; 80048; 80076; 81001; 81025; 83690; 84484; 85025; 87086; 93005; 99285; Q0092